=== PATIENT | male | born 1955 | race African-American/Black ===

== ENCOUNTER 2018-08-27 16:02 | Inpatient (IN) | payer MEDICAID ==
[~2018-08-27] VITALS: Ht 180.3 cm; Wt 107.5 kg
[~2018-08-27 16:02] MED LIST: ALBU6.7H INH; AMLO5TAB88 PO; ASA5EC PO; ASCO100T12 PO; CARV25TA47 PO; FURO-151 PO; GABA-531 PO; GLIM4TAB2 PO; ZINC220T PO
[2018-08-27] MEDS ORDERED: ONDANSETRON HCL 4MG/2ML INJ IV STA (18:27)
[2018-08-27] MEDS ORDERED: SODIUM CHLORIDE 0.9% 1,000 ML IV ONE (18:27)
[2018-08-27] MEDS ORDERED: MORPHINE SULFATE 4 MG/ML CPJ (NOT FOR IM USE) IV STA (18:27)
[2018-08-27] MEDS ORDERED: PIPERACILLIN/TAZ 3.375G PREMIX 50 ML IV ONE (18:30)
[2018-08-27] MEDS ORDERED: VANCOMYCIN 1 G PREMIX 200 ML IV ONE (18:30)
[2018-08-27 19:22] LABS: BASOPHILS % 0.3 % (0.0-2.0); EOSINOPHILS % 2.1 % (0.0-5.0); HEMATOCRIT. 29.3 % (42.0-52.0); HEMOGLOBIN. 9.8 g/dL (14.0-18.0); LYMPHOCYTES % 13.1 % (20.0-50.0); MEAN CORPUSCULAR HEMOGLOBIN 28.5 pg (28.0-32.0); MEAN CORPUSCULAR VOLUME 85.4 fL (80.0-94.0); MEAN PLATELET VOLUME 10.6 fl (7.4-10.4); MONOCYTES % 8.3 % (2.0-8.0); NEUTROPHILS % 76.2 % (40.0-76.0); PLATELET 132 x1000/uL (130-400); RED BLOOD CELL COUNT 3.43 mill/uL (4.7-6.1)
[2018-08-27 19:29] LABS: INR 1.1; PROTHROMBIN TIME 10.9 sec (9.1-11.1)
[2018-08-27 19:33] LABS: CHLORIDE 107 mEq/L (98-107)
[2018-08-27 20:31] LABS: CLARITY URINE CLEAR (CLEAR); COLOR URINE YELLOW (YELLOW); KETONES URINE NEGATIVE (NEGATIVE); LEUKOCYTE ESTERASE URINE NEGATIVE (NEGATIVE); NITRITE URINE NEGATIVE (NEGATIVE); OCCULT BLOOD URINE 1+ (NEGATIVE); PH URINE 6.5 (4.5-8.0); PROTEIN URINE 3+ (NEGATIVE); SPECIFIC GRAVITY URINE 1.017 (1.005-1.030)
[2018-08-27] MEDS ORDERED: CLONIDINE 0.2MG TABLET PO ONE (21:30)
[2018-08-27] MEDS ORDERED: DIPHENHYDRAMINE 50MG/ML VIAL IV PRN (23:15)
[2018-08-27] MEDS ORDERED: PIPERACILLIN/TAZ 3.375G PREMIX 50 ML IV SCH (23:15)
[2018-08-27] MEDS ORDERED: ACETAMINOPHEN 325MG TABLET PO PRN (23:15)
[2018-08-27] MEDS ORDERED: NITROGLYCERIN 0.4MG TABLET SL SL PRN (23:15)
[2018-08-27] MEDS ORDERED: DOCUSATE SODIUM 100MG CAPSULE PO PRN (23:15)
[2018-08-27] MEDS ORDERED: NA PHOS,M-B/NA PHOS,DI-BA ENEMA 118ML PR PRN (23:15)
[2018-08-27] MEDS ORDERED: ONDANSETRON HCL 4MG/2ML INJ IV PRN (23:15)
[2018-08-27] MEDS ORDERED: IPRATROPIUM/ALBUTEROL 0.5-3(2.5)MG/3ML NEB INH PRN (23:15)
[2018-08-27] MEDS ORDERED: TRAMADOL 50MG TABLET PO PRN (23:15)
[2018-08-27] MEDS ORDERED: DEXTROSE 50% WATER 50ML SYRINGE IV PRN (23:15)
[2018-08-27] MEDS ORDERED: GUAIFENESIN 200MG/10ML SUGAR FREE UDC PO PRN (23:15)
[2018-08-27] MEDS ORDERED: MAGNESIUM/ALUMINUM HYDROXIDE/SIMETHICONE 30ML UDC PO PRN (23:15)
[2018-08-27] MEDS ORDERED: ZOLPIDEM TARTRATE 5MG TABLET PO PRN (23:15)
[2018-08-28] VITALS (7 sets, daily range): BP systolic 149–171; BP diastolic 80–97
[2018-08-28] MEDS: AMLODIPINE 10MG TABLET PO SCH ×2 (05:17→09:00)
[2018-08-28] MEDS: BLOOD SUGAR DIAGNOSTIC STRIP TEST SCH ×4 (06:06→21:07)
[2018-08-28] MEDS: INSULIN LISPRO 100 UNITS/ML SUBCUT SCH ×4 (06:07→21:00)
[2018-08-28] MEDS: PIPERACILLIN/TAZ 3.375G PREMIX 50 ML IV SCH ×3 (06:19→21:22)
[2018-08-28] MEDS ORDERED: VANCOMYCIN 1500MG in DEXTROSE 5% WATER 250ML IV SCH (08:00)
[2018-08-28] MEDS: ENOXAPARIN 30MG/0.3ML SYR SUBCUT SCH ×2 (08:58→21:22)
[2018-08-28] MEDS: ZINC SULFATE 220 MG ( 50 ) CAPSULE PO SCH (08:59)
[2018-08-28] MEDS: FAMOTIDINE 20MG TABLET PO SCH ×2 (08:59→20:53)
[2018-08-28] MEDS: SPIRONOLACTONE 25MG TABLET PO SCH ×2 (08:59→20:54)
[2018-08-28] MEDS: FUROSEMIDE 40MG/4ML VIAL IVP SCH ×2 (08:59→20:53)
[2018-08-28] MEDS: METOPROLOL TARTRATE 25MG TABLET PO SCH ×2 (09:00→20:53)
[2018-08-28] MEDS: ASCORBIC ACID 500 MG TABLET PO SCH ×2 (10:58→20:53)
[2018-08-28] MEDS: LISINOPRIL 20MG TABLET PO SCH ×2 (10:59→20:53)
[2018-08-28] MEDS: VANCOMYCIN 1500MG in DEXTROSE 5% WATER 250ML IV SCH (23:50)
[2018-08-29] VITALS (8 sets, daily range): BP systolic 133–161; BP diastolic 75–91
[2018-08-29] MEDS: CLONIDINE 0.1MG TABLET PO PRN (00:04)
[2018-08-29] MEDS: PIPERACILLIN/TAZ 3.375G PREMIX 50 ML IV SCH ×3 (05:53→21:51)
[2018-08-29] MEDS: INSULIN LISPRO 100 UNITS/ML SUBCUT SCH ×4 (06:12→21:00)
[2018-08-29] MEDS: BLOOD SUGAR DIAGNOSTIC STRIP TEST SCH ×4 (06:12→21:51)
[2018-08-29 07:51] LABS: BASOPHILS % 0.4 % (0.0-2.0); EOSINOPHILS % 2.3 % (0.0-5.0); HEMATOCRIT. 28.2 % (42.0-52.0); HEMOGLOBIN. 9.4 g/dL (14.0-18.0); LYMPHOCYTES % 16.9 % (20.0-50.0); MEAN CORPUSCULAR HEMOGLOBIN 28.3 pg (28.0-32.0); MEAN PLATELET VOLUME 10.6 fl (7.4-10.4); MONOCYTES % 9.1 % (2.0-8.0); NEUTROPHILS % 71.3 % (40.0-76.0); PLATELET 135 x1000/uL (130-400); RED BLOOD CELL COUNT 3.32 mill/uL (4.7-6.1); RED CELL DISTRIBUTION WIDTH 15.6 % (11.6-14.6)
[2018-08-29 08:44] LABS: CHLORIDE 103 mEq/L (98-107)
[2018-08-29] MEDS: ASCORBIC ACID 500 MG TABLET PO SCH ×2 (09:21→21:49)
[2018-08-29] MEDS: LISINOPRIL 20MG TABLET PO SCH ×2 (09:21→21:49)
[2018-08-29] MEDS: SPIRONOLACTONE 25MG TABLET PO SCH ×2 (09:22→21:49)
[2018-08-29] MEDS: FAMOTIDINE 20MG TABLET PO SCH ×2 (09:22→21:50)
[2018-08-29] MEDS: ZINC SULFATE 220 MG ( 50 ) CAPSULE PO SCH (09:23)
[2018-08-29] MEDS: AMLODIPINE 10MG TABLET PO SCH (09:23)
[2018-08-29] MEDS: ENOXAPARIN 30MG/0.3ML SYR SUBCUT SCH ×2 (09:26→21:51)
[2018-08-29] MEDS: METOPROLOL TARTRATE 25MG TABLET PO SCH ×2 (09:28→21:50)
[2018-08-29] MEDS ORDERED: LIDOCAINE HCL 1% 20ML VIAL (Pyxis) INJ ONE ×2 (11:28→12:58)
[2018-08-29] MEDS: FUROSEMIDE 40MG/4ML VIAL IVP SCH ×2 (12:37→21:49)
[2018-08-29] MEDS ORDERED: SODIUM BICARBONATE 4% (2.4MEQ) 5ML VIAL IV ONE (12:57)
[2018-08-29] MEDS: VANCOMYCIN 1500MG in DEXTROSE 5% WATER 250ML IV SCH (17:48)
[2018-08-30] VITALS: BP 141/85
[2018-08-30 04:00] VITALS: BP 138/79
[2018-08-30] MEDS: PIPERACILLIN/TAZ 3.375G PREMIX 50 ML IV SCH ×3 (06:17→21:29)
[2018-08-30] MEDS: BLOOD SUGAR DIAGNOSTIC STRIP TEST SCH ×4 (06:17→20:53)
[2018-08-30] MEDS: INSULIN LISPRO 100 UNITS/ML SUBCUT SCH ×4 (06:17→20:53)
[2018-08-30 08:00] VITALS: BP 161/80
[2018-08-30] MEDS: FAMOTIDINE 20MG TABLET PO SCH ×2 (09:11→20:52)
[2018-08-30] MEDS: AMLODIPINE 10MG TABLET PO SCH (09:12)
[2018-08-30] MEDS: ZINC SULFATE 220 MG ( 50 ) CAPSULE PO SCH (09:13)
[2018-08-30] MEDS: SPIRONOLACTONE 25MG TABLET PO SCH ×2 (09:13→20:51)
[2018-08-30] MEDS: LISINOPRIL 20MG TABLET PO SCH ×2 (09:14→20:52)
[2018-08-30] MEDS: METOPROLOL TARTRATE 25MG TABLET PO SCH ×2 (09:14→20:52)
[2018-08-30] MEDS: ASCORBIC ACID 500 MG TABLET PO SCH ×2 (09:14→20:51)
[2018-08-30] MEDS: FUROSEMIDE 40MG/4ML VIAL IVP SCH ×2 (09:15→20:51)
[2018-08-30] MEDS: ENOXAPARIN 30MG/0.3ML SYR SUBCUT SCH ×2 (09:20→21:29)
[2018-08-30] MEDS ORDERED: HYDROMORPHONE HCL/PF 2MG/ML CPJ IV PRN (09:45)
[2018-08-30] MEDS: LEVOFLOXACIN 500MG PREMIX 100 ML IV SCH (11:47)
[2018-08-30 12:00] VITALS: BP 140/76
[2018-08-30] MEDS: KETOROLAC 15MG/ML VIAL IV PRN (12:03)
[2018-08-30] MEDS: VANCOMYCIN 1500MG in DEXTROSE 5% WATER 250ML IV SCH (13:08)
[2018-08-30 16:00] VITALS: BP 155/89
[2018-08-30 20:00] VITALS: BP 167/87
[2018-08-31] VITALS: BP 153/81
[2018-08-31 04:00] VITALS: BP 144/75
[2018-08-31] MEDS: VANCOMYCIN 1500MG in DEXTROSE 5% WATER 250ML IV SCH (04:31)
[2018-08-31] MEDS: INSULIN LISPRO 100 UNITS/ML SUBCUT SCH ×4 (07:38→21:00)
[2018-08-31] MEDS: PIPERACILLIN/TAZ 3.375G PREMIX 50 ML IV SCH ×3 (07:38→21:43)
[2018-08-31] MEDS: BLOOD SUGAR DIAGNOSTIC STRIP TEST SCH ×4 (07:38→21:00)
[2018-08-31] MEDS: ENOXAPARIN 30MG/0.3ML SYR SUBCUT SCH ×2 (09:19→21:42)
[2018-08-31] MEDS: METOPROLOL TARTRATE 25MG TABLET PO SCH ×2 (09:20→21:41)
[2018-08-31] MEDS: LISINOPRIL 20MG TABLET PO SCH ×2 (09:20→21:40)
[2018-08-31] MEDS: ZINC SULFATE 220 MG ( 50 ) CAPSULE PO SCH (09:21)
[2018-08-31] MEDS: ASCORBIC ACID 500 MG TABLET PO SCH ×2 (09:21→21:40)
[2018-08-31] MEDS: SPIRONOLACTONE 25MG TABLET PO SCH ×2 (09:21→21:41)
[2018-08-31] MEDS: AMLODIPINE 10MG TABLET PO SCH (09:21)
[2018-08-31] MEDS: FUROSEMIDE 40MG/4ML VIAL IVP SCH ×2 (09:22→21:40)
[2018-08-31] MEDS: FAMOTIDINE 20MG TABLET PO SCH ×2 (09:46→21:41)
[2018-08-31] MEDS: LEVOFLOXACIN 500MG PREMIX 100 ML IV SCH (11:29)
[2018-08-31 12:00] VITALS: BP 138/78
[2018-08-31 16:00] VITALS: BP 163/93
[2018-08-31 20:00] VITALS: BP 150/83
[2018-09-01] VITALS (7 sets, daily range): BP systolic 130–189; BP diastolic 46–91
[2018-09-01] MEDS: PIPERACILLIN/TAZ 3.375G PREMIX 50 ML IV SCH ×2 (05:39→13:32)
[2018-09-01] MEDS: KETOROLAC 15MG/ML VIAL IV PRN (05:49)
[2018-09-01] MEDS: VANCOMYCIN 1500MG in DEXTROSE 5% WATER 250ML IV SCH (06:17)
[2018-09-01] MEDS: BLOOD SUGAR DIAGNOSTIC STRIP TEST SCH ×2 (06:17→12:14)
[2018-09-01] MEDS: INSULIN LISPRO 100 UNITS/ML SUBCUT SCH ×2 (06:17→12:15)
[2018-09-01] MEDS: FUROSEMIDE 40MG/4ML VIAL IVP SCH (10:20)
[2018-09-01] MEDS: AMLODIPINE 10MG TABLET PO SCH (10:20)
[2018-09-01] MEDS: FAMOTIDINE 20MG TABLET PO SCH (10:20)
[2018-09-01] MEDS: SPIRONOLACTONE 25MG TABLET PO SCH (10:20)
[2018-09-01] MEDS: ENOXAPARIN 30MG/0.3ML SYR SUBCUT SCH (10:20)
[2018-09-01] MEDS: ZINC SULFATE 220 MG ( 50 ) CAPSULE PO SCH (10:20)
[2018-09-01] MEDS: METOPROLOL TARTRATE 25MG TABLET PO SCH (10:20)
[2018-09-01] MEDS: LEVOFLOXACIN 500MG PREMIX 100 ML IV SCH (11:23)
[2018-09-01] MEDS: LISINOPRIL 20MG TABLET PO SCH (11:59)
[2018-09-01] MEDS: ASCORBIC ACID 500 MG TABLET PO SCH (11:59)
[2018-09-01] MEDS: CLONIDINE 0.1MG TABLET PO PRN (12:21)
== END 2018-09-01 19:50 | disposition home health service (06) | DRG 344 ==
LOC: ER 16:19 → 8WST 22:47 → EDBEDREQ 22:56 → EDBEDREQTM 22:56 → ENRESERV 23:58 → CANRESERV 23:58 → EDBEDREQSVC 08-28 02:10 → EDBEDREQDT 08-28 02:10 → EDBEDREQ 08-28 02:10 → EDBEDREQTM 08-28 02:10 → ENRESERV 08-28 02:47
PROVIDERS: ADMIT Internal Medicine; ATTEND Internal Medicine
PROC: 02HV33Z Insertion of Infusion Device into Superior Vena Cava, Percutaneous Approach (ICD-10-PCS; 2018-08-29)
PROC: B5181ZA Fluoroscopy of Superior Vena Cava using Low Osmolar Contrast, Guidance (ICD-10-PCS; 2018-08-29)
PROC: B548ZZA Ultrasonography of Superior Vena Cava, Guidance (ICD-10-PCS; 2018-08-29)
PROC: 0JBQ0ZZ Excision of Right Foot Subcutaneous Tissue and Fascia, Open Approach (ICD-10-PCS; principal; 2018-08-31)
PROC: 0JBQ0ZZ Excision of Right Foot Subcutaneous Tissue and Fascia, Open Approach (ICD-10-PCS; 2018-08-31)
PROC: 0JBR0ZZ Excision of Left Foot Subcutaneous Tissue and Fascia, Open Approach (ICD-10-PCS; 2018-08-31)
DX: E11.621 Type 2 diabetes mellitus with foot ulcer (principal); M86.8X7 Other osteomyelitis, ankle and foot; E11.42 Type 2 diabetes mellitus with diabetic polyneuropathy; E44.0 Moderate protein-calorie malnutrition; E83.51 Hypocalcemia; I42.9 Cardiomyopathy, unspecified; I50.9 Heart failure, unspecified; I11.0 Hypertensive heart disease with heart failure; L97.529 Non-pressure chronic ulcer of other part of left foot with unspecified severity; L97.519 Non-pressure chronic ulcer of other part of right foot with unspecified severity; E11.69 Type 2 diabetes mellitus with other specified complication; D64.9 Anemia, unspecified; L89.90 Pressure ulcer of unspecified site, unspecified stage; Z68.33 Body mass index [BMI] 33.0-33.9, adult; Z79.899 Other long term (current) drug therapy; Z79.82 Long term (current) use of aspirin; Z89.432 Acquired absence of left foot
CPT/HCPCS: 36415; 36569; 71045; 73630; 73718; 76937; 77001; 80048; 80061; 80202; 82962; 83036; 83605; 84145; 84484; 87070; 87077; 87186; 93005; 93923; 93970; 96361; 96365; 96367; 96375; 99285; C1725; J1170; J1650; J1885; J1940; J1956; J2270; J2405; J2543; J3370; J3490; J7030; J7050; J7060

== ENCOUNTER 2018-12-31 14:18 | Inpatient (IN) | payer MEDICAID ==
[~2018-12-31] VITALS: Ht 180.3 cm; Wt 108.9 kg
[2018-12-31] MEDS ORDERED: CLONIDINE 0.2MG TABLET PO ONE (21:30)
[2018-12-31] MEDS ORDERED: FUROSEMIDE 40MG/4ML VIAL IV ONE (21:30)
[2018-12-31] MEDS ORDERED: ASPIRIN 81MG TABLET PO ONE (21:30)
[2018-12-31 22:16] LABS: BASOPHILS % 0.4 % (0.0-2.0); EOSINOPHILS % 1.4 % (0.0-5.0); HEMATOCRIT. 33.9 % (42.0-52.0); HEMOGLOBIN. 10.8 g/dL (14.0-18.0); LYMPHOCYTES % 7.2 % (20.0-50.0); MEAN CORPUSCULAR HEMOGLOBIN 26.3 pg (28.0-32.0); MEAN CORPUSCULAR VOLUME 82.8 fL (80.0-94.0); MEAN PLATELET VOLUME 10.4 fl (7.4-10.4); MONOCYTES % 14.7 % (2.0-8.0); NEUTROPHILS % 76.3 % (40.0-76.0); PLATELET 154 x1000/uL (130-400); RED CELL DISTRIBUTION WIDTH 16.7 % (11.6-14.6)
[2018-12-31 22:23] LABS: INR 1.1; PARTIAL THROMBOPLASTIN TIME 30.8 sec (23.4-31.0); PROTHROMBIN TIME 11.1 sec (9.1-11.1)
[2018-12-31 22:25] LABS: CHLORIDE 107 mEq/L (98-107)
[2018-12-31 22:32] LABS: ETHANOL BLOOD < 10 mg/dL
[2019-01-01 01:15] VITALS: BP 166/98
[2019-01-01] MEDS ORDERED: ATOR20TA65 PO (01:52)
[2019-01-01] MEDS ORDERED: BENA40TA9 PO (01:52)
[2019-01-01] MEDS ORDERED: METF-416 PO (01:52)
[2019-01-01] MEDS ORDERED: ASPI-1159 PO (01:55)
[2019-01-01] MEDS ORDERED: FURO20TA4 PO (01:55)
[2019-01-01 04:00] VITALS: BP 163/93
[2019-01-01] MEDS ORDERED: CLONIDINE 0.1MG TABLET PO PRN ×2 (04:45→06:00)
[2019-01-01] MEDS ORDERED: ONDANSETRON HCL 4MG/2ML INJ IV PRN (06:00)
[2019-01-01] MEDS ORDERED: HYDRALAZINE 20MG/ML VIAL IV PRN ×2 (06:00→11:00)
[2019-01-01] MEDS ORDERED: IPRATROPIUM/ALBUTEROL 0.5-3(2.5)MG/3ML NEB INH PRN (06:00)
[2019-01-01] MEDS ORDERED: ENOXAPARIN 40MG/0.4ML SYR SUBCUT SCH (06:00)
[2019-01-01] MEDS ORDERED: LORAZEPAM 2MG/ML CPJ IV PRN (06:00)
[2019-01-01] MEDS ORDERED: ACETAMINOPHEN 325MG TABLET PO PRN (06:00)
[2019-01-01] MEDS ORDERED: HYDROCODONE/ACETAMINOPHEN 10/325MG TABLET PO PRN (06:00)
[2019-01-01] MEDS ORDERED: DOCUSATE SODIUM 100MG CAPSULE PO PRN (06:00)
[2019-01-01] MEDS ORDERED: DEXTROSE 50% WATER 50ML SYRINGE IV PRN (06:00)
[2019-01-01] MEDS ORDERED: MAGNESIUM/ALUMINUM HYDROXIDE/SIMETHICONE 30ML UDC PO PRN (06:00)
[2019-01-01] MEDS: INSULIN LISPRO 100 UNITS/ML SUBCUT SCH ×4 (06:19→21:00)
[2019-01-01] MEDS: BLOOD SUGAR DIAGNOSTIC STRIP TEST SCH ×4 (06:24→21:00)
[2019-01-01] MEDS: SODIUM CHLORIDE 0.9% INJ 3ML FLUSH IVF SCH ×3 (06:33→22:15)
[2019-01-01 08:00] VITALS: BP 175/97
[2019-01-01] MEDS ORDERED: FUROSEMIDE 40MG/4ML VIAL IV SCH (09:00)
[2019-01-01] MEDS: ASPIRIN 81MG EC TABLET PO SCH (09:09)
[2019-01-01] MEDS: ENOXAPARIN 30MG/0.3ML SYR SUBCUT SCH ×2 (09:09→21:04)
[2019-01-01] MEDS: LOSARTAN POTASSIUM 25 MG TABLET PO SCH ×2 (11:50→21:04)
[2019-01-01] MEDS: GUAIFENESIN 200MG/10ML SUGAR FREE UDC PO PRN ×2 (11:50→17:55)
[2019-01-01] MEDS: AMLODIPINE 5MG TABLET PO SCH ×2 (11:50→21:04)
[2019-01-01 12:20] VITALS: BP 159/96
[2019-01-01 13:22] LABS: CREATINE KINASE MB FRACTION 1.7 ng/mL (0.5-3.6)
[2019-01-01 15:47] LABS: CREATINE KINASE MB FRACTION 1.5 ng/mL (0.5-3.6)
[2019-01-01 16:05] VITALS: BP 161/92
[2019-01-01 16:07] LABS: *AMPHETAMINES SCREEN URINE NEGATIVE (NEGATIVE); *BARBITURATES SCREEN URINE NEGATIVE (NEGATIVE); *BENZODIAZEPINES SCREEN URINE NEGATIVE (NEGATIVE); *COCAINE SCREEN URINE NEGATIVE (NEGATIVE); OPIATES URINE SCREEN NEGATIVE (NEGATIVE)
[2019-01-01 16:08] LABS: CANNABINOID URINE SCREEN NEGATIVE (NEGATIVE); PHENCYCLIDINE URINE SCREEN NEGATIVE (NEGATIVE)
[2019-01-01 16:09] LABS: METHADONE URINE SCREEN NEGATIVE (NEGATIVE)
[2019-01-01 16:11] LABS: CLARITY URINE CLEAR (CLEAR); COLOR URINE YELLOW (YELLOW); KETONES URINE NEGATIVE (NEGATIVE); LEUKOCYTE ESTERASE URINE NEGATIVE (NEGATIVE); NITRITE URINE NEGATIVE (NEGATIVE); OCCULT BLOOD URINE 1+ (NEGATIVE); PH URINE 5.5 (4.5-8.0); PROTEIN URINE 3+ (NEGATIVE); SPECIFIC GRAVITY URINE 1.014 (1.005-1.030)
[2019-01-01] MEDS: FUROSEMIDE 40MG/4ML VIAL IV SCH (17:56)
[2019-01-01 20:00] VITALS: BP 177/97
[2019-01-01] MEDS: GUAIFENESIN 600MG ER TABLET PO SCH (21:03)
[2019-01-02] VITALS: BP 169/101
[2019-01-02] MEDS: CLONIDINE 0.1MG TABLET PO PRN ×3 (01:26→12:10)
[2019-01-02 04:00] VITALS: BP 171/102
[2019-01-02] MEDS: HYDROMORPHONE HCL/PF 2MG/ML CPJ IV PRN ×3 (05:42→20:57)
[2019-01-02] MEDS: BLOOD SUGAR DIAGNOSTIC STRIP TEST SCH ×4 (05:49→20:52)
[2019-01-02] MEDS: SODIUM CHLORIDE 0.9% INJ 3ML FLUSH IVF SCH ×3 (05:50→21:02)
[2019-01-02] MEDS: INSULIN LISPRO 100 UNITS/ML SUBCUT SCH ×4 (06:17→20:53)
[2019-01-02 06:57] LABS: HEMATOCRIT. 29.6 % (42.0-52.0); HEMOGLOBIN. 9.6 g/dL (14.0-18.0); MEAN CORPUSCULAR HEMOGLOBIN 26.4 pg (28.0-32.0); MEAN CORPUSCULAR VOLUME 80.9 fL (80.0-94.0); MEAN PLATELET VOLUME 10.4 fl (7.4-10.4); PLATELET 139 x1000/uL (130-400); RED BLOOD CELL COUNT 3.66 mill/uL (4.7-6.1); RED CELL DISTRIBUTION WIDTH 16.5 % (11.6-14.6)
[2019-01-02] MEDS: FUROSEMIDE 40MG/4ML VIAL IV SCH (06:58)
[2019-01-02 07:06] LABS: CHLORIDE 105 mEq/L (98-107)
[2019-01-02 07:20] LABS: LDL CHOLESTEROL 41 mg/dL (5-100)
[2019-01-02 07:24] LABS: T4 FREE 1.31 ng/dL (0.76-1.46)
[2019-01-02 07:25] LABS: HDL CHOLESTEROL 43 mg/dL (40-59)
[2019-01-02 08:00] VITALS: BP 152/81
[2019-01-02] MEDS: LOSARTAN POTASSIUM 25 MG TABLET PO SCH (08:57)
[2019-01-02] MEDS: ASPIRIN 81MG EC TABLET PO SCH (08:57)
[2019-01-02] MEDS: GUAIFENESIN 600MG ER TABLET PO SCH ×2 (08:57→20:48)
[2019-01-02] MEDS: AMLODIPINE 5MG TABLET PO SCH ×2 (08:57→20:49)
[2019-01-02] MEDS: ENOXAPARIN 30MG/0.3ML SYR SUBCUT SCH ×2 (08:58→21:00)
[2019-01-02] MEDS ORDERED: POTASSIUM CHLORIDE 20MEQ TABLET SR PO SCH (09:00)
[2019-01-02 10:32] LABS: PLATELET ESTIMATE NORMAL
[2019-01-02 12:01] VITALS: BP 172/97
[2019-01-02] MEDS ORDERED: IPRATROPIUM/ALBUTEROL 0.5-3(2.5)MG/3ML NEB HHN PRN (12:30)
[2019-01-02] MEDS: HYDRALAZINE HCL 50MG TABLET PO SCH ×2 (14:00→21:03)
[2019-01-02] MEDS ORDERED: MAGNESIUM 1 G PREMIX 100 ML IV NR (14:00)
[2019-01-02] MEDS: GUAIFENESIN 200MG/10ML SUGAR FREE UDC PO PRN (15:25)
[2019-01-02 16:12] VITALS: BP 138/88
[2019-01-02] MEDS: POTASSIUM CHLORIDE 20MEQ TABLET SR PO SCH (16:56)
[2019-01-02] MEDS: FUROSEMIDE 100MG/10ML VIAL IV SCH (16:56)
[2019-01-02 20:00] VITALS: BP 190/99
[2019-01-02] MEDS: LOSARTAN POTASSIUM 50 MG TABLET PO SCH (20:49)
[2019-01-03] VITALS: BP 167/86
[2019-01-03] MEDS: HYDROMORPHONE HCL/PF 2MG/ML CPJ IV PRN (00:03)
[2019-01-03] MEDS: CLONIDINE 0.1MG TABLET PO PRN (00:12)
[2019-01-03 04:00] VITALS: BP 148/76
[2019-01-03] MEDS: HYDRALAZINE HCL 50MG TABLET PO SCH (06:20)
[2019-01-03] MEDS: FUROSEMIDE 100MG/10ML VIAL IV SCH (06:20)
[2019-01-03] MEDS: SODIUM CHLORIDE 0.9% INJ 3ML FLUSH IVF SCH (06:21)
[2019-01-03] MEDS: BLOOD SUGAR DIAGNOSTIC STRIP TEST SCH ×2 (06:21→12:25)
[2019-01-03] MEDS: INSULIN LISPRO 100 UNITS/ML SUBCUT SCH ×2 (06:32→12:15)
[2019-01-03] MEDS: GUAIFENESIN 200MG/10ML SUGAR FREE UDC PO PRN (06:43)
[2019-01-03 08:00] VITALS: BP 158/86
[2019-01-03] MEDS: ASPIRIN 81MG EC TABLET PO SCH (08:51)
[2019-01-03] MEDS: POTASSIUM CHLORIDE 20MEQ TABLET SR PO SCH (08:51)
[2019-01-03] MEDS: GUAIFENESIN 600MG ER TABLET PO SCH (08:52)
[2019-01-03] MEDS: LOSARTAN POTASSIUM 50 MG TABLET PO SCH (08:52)
[2019-01-03] MEDS: ENOXAPARIN 30MG/0.3ML SYR SUBCUT SCH (08:52)
[2019-01-03] MEDS: AMLODIPINE 5MG TABLET PO SCH (08:55)
[2019-01-03 11:07] VITALS: BP 148/68
[2019-01-03 12:00] VITALS: BP 152/76
== END 2019-01-03 14:09 | disposition home or self-care (01) | DRG 194 ==
LOC: ER 14:18 → 5WST 23:38 → EDBEDREQ 23:50 → EDBEDREQTM 23:50 → ENRESERV 01-01 00:22
PROVIDERS: ADMIT Internal Medicine; ATTEND Internal Medicine
DX: I11.0 Hypertensive heart disease with heart failure (principal); E11.649 Type 2 diabetes mellitus with hypoglycemia without coma; E46 Unspecified protein-calorie malnutrition; I27.20 Pulmonary hypertension, unspecified; I07.1 Rheumatic tricuspid insufficiency; E44.1 Mild protein-calorie malnutrition; E83.51 Hypocalcemia; N28.9 Disorder of kidney and ureter, unspecified; J98.11 Atelectasis; D64.9 Anemia, unspecified; E66.9 Obesity, unspecified; Z68.33 Body mass index [BMI] 33.0-33.9, adult; Z79.82 Long term (current) use of aspirin; Z79.84 Long term (current) use of oral hypoglycemic drugs; Z79.899 Other long term (current) drug therapy; Z82.49 Family history of ischemic heart disease and other diseases of the circulatory system; I50.23 Acute on chronic systolic (congestive) heart failure
CPT/HCPCS: 36415; 71045; 80061; 80305; 82550; 82553; 82962; 83605; 83735; 83880; 84439; 84443; 84484; 85379; 93005; 93306; 93970; 96374; 96375; 99285; J1170; J1650; J1940; J3475; J7050

== ENCOUNTER 2021-03-07 20:40 | Inpatient (IN) | payer MEDICAID ==
[~2021-03-07] VITALS: Ht 172.7 cm; Wt 96.6 kg
[2021-03-07] MEDS: HYDRALAZINE HCL 50MG TABLET PO NR (00:15)
[~2021-03-07 20:40] MED LIST changes: -ALBU6.7H INH; +ALBU6.7H11 INH; -ASA5EC PO; +ASPI-1497 PO; +ASPI-867 PO; +ATOR20TA65 PO; +BENA40TA9 PO; +FURO20TA4 PO; -GABA-531 PO; +GABA-532 PO; -GLIM4TAB2 PO; +GLIM4TAB36 PO; +METF-416 PO; -ZINC220T PO; +ZINC220T4 PO
[2021-03-07] MEDS ORDERED: CALAMINE LOTION 120ML TOP ONE (22:00)
[2021-03-07] MEDS ORDERED: DIPHENHYDRAMINE 50MG/ML VIAL IV ONE ×2 (22:00→22:45)
[2021-03-07 22:12] LABS: CHLORIDE 112 mEq/L (98-107)
[2021-03-07 22:15] LABS: BASOPHILS % 0.6 % (0.0-2.0); EOSINOPHILS % 2.8 % (0.0-5.0); HEMATOCRIT. 28.1 % (42.0-52.0); HEMOGLOBIN. 9.2 g/dL (14.0-18.0); LYMPHOCYTES % 11.8 % (20.0-50.0); MEAN CORPUSCULAR HEMOGLOBIN 26.8 pg (28.0-32.0); MEAN CORPUSCULAR VOLUME 82.2 fL (80.0-94.0); MEAN PLATELET VOLUME 10.3 fl (7.4-10.4); MONOCYTES % 8.7 % (2.0-8.0); NEUTROPHILS % 76.1 % (40.0-76.0); PLATELET 134 x1000/uL (130-400); RED BLOOD CELL COUNT 3.42 mill/uL (4.7-6.1)
[2021-03-07] MEDS: TRIAMCINOLONE ACETONIDE 0.025% CREAM 15GM TOP SCH ×2 (22:36→23:46)
[2021-03-07] MEDS ORDERED: LORAZEPAM 2MG/ML CPJ IV ONE (23:15)
[2021-03-07] MEDS ORDERED: FUROSEMIDE 40MG/4ML VIAL IVP ONE (23:45)
[2021-03-07] MEDS ORDERED: HYDRALAZINE 20MG/ML VIAL IV ONE (23:45)
[2021-03-08] MEDS ORDERED: LABETALOL 5MG/ML SYR 20 MG/4 ML SYRINGE IV ONE (00:15)
[2021-03-08] MEDS ORDERED: PIPERACILLIN/TAZOBACTAM 3.375GM/50ML PREMIX IV ONE (00:30)
[2021-03-08] MEDS ORDERED: NITROGLYCERIN 50MG PREMIX 250ML IV PRN (00:45)
[2021-03-08] MEDS ORDERED: PIPERACILLIN/TAZ 3.375G PREMIX 50 ML IV NR (01:00)
[2021-03-08] MEDS: CLONIDINE 0.2MG TABLET PO PRN (05:33)
[2021-03-08] MEDS: HYDRALAZINE HCL 50MG TABLET PO NR (06:22)
[2021-03-08] MEDS ORDERED: HYDRALAZINE HCL 100MG TABLET PO ONE (07:45)
[2021-03-08] MEDS ORDERED: ONDANSETRON HCL 4MG/2ML INJ IV PRN (07:45)
[2021-03-08] MEDS: AMLODIPINE 10MG TABLET PO SCH (08:59)
[2021-03-08 09:26] LABS: CLARITY URINE CLEAR (CLEAR); COLOR URINE YELLOW (YELLOW); KETONES URINE NEGATIVE (NEGATIVE); LEUKOCYTE ESTERASE URINE NEGATIVE (NEGATIVE); NITRITE URINE NEGATIVE (NEGATIVE); OCCULT BLOOD URINE TRACE (NEGATIVE); PROTEIN URINE 3+ (NEGATIVE); SPECIFIC GRAVITY URINE 1.011 (1.005-1.030); UROBILINOGEN URINE 0.2 E.U./dL (0.2-1.0)
[2021-03-08 09:39] LABS: *AMPHETAMINES SCREEN URINE NEGATIVE (NEGATIVE); *BARBITURATES SCREEN URINE NEGATIVE (NEGATIVE)
[2021-03-08 09:40] LABS: *BENZODIAZEPINES SCREEN URINE NEGATIVE (NEGATIVE); *COCAINE SCREEN URINE NEGATIVE (NEGATIVE); CANNABINOID URINE SCREEN NEGATIVE (NEGATIVE); METHADONE URINE SCREEN NEGATIVE (NEGATIVE); OPIATES URINE SCREEN NEGATIVE (NEGATIVE); PHENCYCLIDINE URINE SCREEN NEGATIVE (NEGATIVE)
[2021-03-08] MEDS: FUROSEMIDE 100MG/10ML VIAL IVP SCH ×2 (09:41→18:55)
[2021-03-08 11:15] VITALS: BP 150/86
[2021-03-08] MEDS: CLONIDINE 0.1MG TABLET PO SCH ×2 (14:28→21:26)
[2021-03-08] MEDS: HYDRALAZINE HCL 100MG TABLET PO SCH ×2 (14:29→21:24)
[2021-03-08 16:00] VITALS: BP 138/73
[2021-03-08 16:14] LABS: BG BASE EXCESS -7.1 mmol/L (-2.0-2.0); BG CARBOXYHEMOGLOBIN 0.5 % (0.5-1.5); BG DEOXYHEMOGLOBIN 4.3 % (0.0-5.0); BG FRACTION INSPIRED OXYGEN 21; BG HCO3 ACT 17.5 mmol/L (22.0-26.0); BG METHEMOGLOBIN 0.2 % (0.0-1.5); BG OXYGEN SATURATION 95.7 % (92.0-98.5); BG PCO2 31.6 mmHg (35.0-45.0); BG PO2 81.4 mmHg (75.0-100.0); BG SAMPLE SITE LEFT RADIAL; BG TOTAL HEMOGLOBIN 9.9 g/dL (12.0-18.0); BG VENT MODE ROOM AIR
[2021-03-08] MEDS ORDERED: ENOXAPARIN 30MG/0.3ML SYR SUBCUT SCH (17:30)
[2021-03-08 20:00] VITALS: BP 155/78
[2021-03-08] MEDS: CARVEDILOL 3.125 MG TABLET PO SCH (21:25)
[2021-03-08] MEDS: HYDROCODONE/ACETAMINOPHEN 10/325MG TABLET PO PRN (23:05)
[2021-03-09] VITALS: BP 139/80
[2021-03-09 04:00] VITALS: BP 150/82
[2021-03-09] MEDS: FUROSEMIDE 100MG/10ML VIAL IVP SCH ×2 (05:35→17:19)
[2021-03-09] MEDS: HYDRALAZINE HCL 100MG TABLET PO SCH ×3 (05:44→21:22)
[2021-03-09] MEDS: CLONIDINE 0.1MG TABLET PO SCH ×3 (05:50→21:23)
[2021-03-09 06:52] LABS: BASOPHILS % 0.5 % (0.0-2.0); EOSINOPHILS % 4.3 % (0.0-5.0); HEMATOCRIT. 28.8 % (42.0-52.0); HEMOGLOBIN. 9.4 g/dL (14.0-18.0); LYMPHOCYTES % 11.3 % (20.0-50.0); MEAN CORPUSCULAR VOLUME 82.5 fL (80.0-94.0); MEAN PLATELET VOLUME 9.9 fl (7.4-10.4); MONOCYTES % 8.8 % (2.0-8.0); NEUTROPHILS % 75.1 % (40.0-76.0); PLATELET 136 x1000/uL (130-400); RED BLOOD CELL COUNT 3.49 mill/uL (4.7-6.1); RED CELL DISTRIBUTION WIDTH 19.6 % (11.6-14.6)
[2021-03-09 06:53] LABS: PHOSPHORUS 5.6 mg/dL (2.5-4.9)
[2021-03-09 08:00] VITALS: BP 146/80
[2021-03-09] MEDS: CARVEDILOL 3.125 MG TABLET PO SCH ×2 (08:59→21:23)
[2021-03-09] MEDS: AMLODIPINE 10MG TABLET PO SCH (08:59)
[2021-03-09] MEDS: DIPHENHYDRAMINE 25MG CAPSULE PO PRN ×2 (09:00→12:36)
[2021-03-09] MEDS: TRIAMCINOLONE ACETONIDE 0.025% CREAM 15GM TOP SCH ×2 (09:00→21:24)
[2021-03-09] MEDS: SODIUM BICARBONATE 650 MG TABLET PO SCH ×2 (10:17→21:22)
[2021-03-09 12:00] VITALS: BP 131/67
[2021-03-09] MEDS ORDERED: DIPHENHYDRAMINE 50MG/ML VIAL IV NR (14:15)
[2021-03-09 16:00] VITALS: BP 145/73
[2021-03-09] MEDS ORDERED: IPRATROPIUM/ALBUTEROL 0.5-3(2.5)MG/3ML NEB HHN PRN (17:15)
[2021-03-09] MEDS: ENOXAPARIN 40MG/0.4ML SYR SUBCUT SCH (17:19)
[2021-03-09] MEDS: HYDROXYZINE 25MG TABLET PO PRN (17:19)
[2021-03-09 20:00] VITALS: BP 136/70
[2021-03-10] VITALS (7 sets, daily range): BP systolic 128–154; BP diastolic 69–83
[2021-03-10] MEDS: HYDROXYZINE 25MG TABLET PO PRN ×4 (00:39→22:42)
[2021-03-10] MEDS: FUROSEMIDE 100MG/10ML VIAL IVP SCH (05:23)
[2021-03-10] MEDS: CLONIDINE 0.1MG TABLET PO SCH ×3 (05:24→22:35)
[2021-03-10] MEDS: HYDRALAZINE HCL 100MG TABLET PO SCH ×3 (05:24→22:35)
[2021-03-10 07:09] LABS: BASOPHILS % 0.6 % (0.0-2.0); EOSINOPHILS % 3.7 % (0.0-5.0); HEMOGLOBIN. 8.6 g/dL (14.0-18.0); LYMPHOCYTES % 14.9 % (20.0-50.0); MEAN CORPUSCULAR HEMOGLOBIN 26.9 pg (28.0-32.0); MEAN CORPUSCULAR VOLUME 81.5 fL (80.0-94.0); MEAN PLATELET VOLUME 10.7 fl (7.4-10.4); MONOCYTES % 9.9 % (2.0-8.0); NEUTROPHILS % 70.9 % (40.0-76.0); PLATELET 139 x1000/uL (130-400); RED BLOOD CELL COUNT 3.19 mill/uL (4.7-6.1); RED CELL DISTRIBUTION WIDTH 19.6 % (11.6-14.6)
[2021-03-10 07:53] LABS: PHOSPHORUS 5.3 mg/dL (2.5-4.9)
[2021-03-10] MEDS: SODIUM BICARBONATE 650 MG TABLET PO SCH ×2 (08:22→20:45)
[2021-03-10] MEDS: AMLODIPINE 10MG TABLET PO SCH (08:22)
[2021-03-10] MEDS: CARVEDILOL 3.125 MG TABLET PO SCH ×2 (08:22→20:45)
[2021-03-10] MEDS: TRIAMCINOLONE ACETONIDE 0.025% CREAM 15GM TOP SCH ×2 (08:23→20:46)
[2021-03-10] MEDS: ENOXAPARIN 40MG/0.4ML SYR SUBCUT SCH (16:17)
[2021-03-10] MEDS: ACETAMINOPHEN 325MG TABLET PO PRN (22:36)
[2021-03-11] VITALS: BP 164/89
[2021-03-11] MEDS: DIPHENHYDRAMINE 25MG CAPSULE PO PRN ×2 (02:35→21:35)
[2021-03-11] MEDS: HYDROCODONE/ACETAMINOPHEN 10/325MG TABLET PO PRN ×2 (02:35→21:36)
[2021-03-11 04:00] VITALS: BP 151/74
[2021-03-11] MEDS: HYDROXYZINE 25MG TABLET PO PRN ×3 (04:31→16:23)
[2021-03-11] MEDS: HYDRALAZINE HCL 100MG TABLET PO SCH ×3 (05:36→21:35)
[2021-03-11] MEDS: CLONIDINE 0.2MG TABLET PO PRN (05:36)
[2021-03-11] MEDS: CLONIDINE 0.1MG TABLET PO SCH ×3 (06:00→21:35)
[2021-03-11 06:23] LABS: PHOSPHORUS 5.3 mg/dL (2.5-4.9)
[2021-03-11 08:00] VITALS: BP 143/76
[2021-03-11 08:22] LABS: BASOPHILS % 0.3 % (0.0-2.0); EOSINOPHILS % 2.8 % (0.0-5.0); HEMATOCRIT. 26.3 % (42.0-52.0); HEMOGLOBIN. 8.7 g/dL (14.0-18.0); MEAN CORPUSCULAR HEMOGLOBIN 26.9 pg (28.0-32.0); MEAN CORPUSCULAR VOLUME 81.8 fL (80.0-94.0); MEAN PLATELET VOLUME 10.6 fl (7.4-10.4); NEUTROPHILS % 77.9 % (40.0-76.0); PLATELET 134 x1000/uL (130-400); RED BLOOD CELL COUNT 3.22 mill/uL (4.7-6.1); RED CELL DISTRIBUTION WIDTH 19.2 % (11.6-14.6)
[2021-03-11] MEDS: TRIAMCINOLONE ACETONIDE 0.025% CREAM 15GM TOP SCH ×2 (08:30→21:00)
[2021-03-11] MEDS: AMLODIPINE 10MG TABLET PO SCH (08:30)
[2021-03-11] MEDS: SODIUM BICARBONATE 650 MG TABLET PO SCH ×2 (08:30→21:36)
[2021-03-11] MEDS: CARVEDILOL 3.125 MG TABLET PO SCH ×2 (08:30→21:35)
[2021-03-11 12:00] VITALS: BP 120/75
[2021-03-11] MEDS: ENOXAPARIN 40MG/0.4ML SYR SUBCUT SCH (15:02)
[2021-03-11 16:00] VITALS: BP 130/62
[2021-03-11 20:00] VITALS: BP 150/82
[2021-03-12] VITALS: BP 144/80
[2021-03-12 04:00] VITALS: BP 140/70
[2021-03-12] MEDS: HYDROXYZINE 25MG TABLET PO PRN ×3 (05:02→17:19)
[2021-03-12] MEDS: CLONIDINE 0.1MG TABLET PO SCH ×3 (05:02→21:36)
[2021-03-12] MEDS: HYDRALAZINE HCL 100MG TABLET PO SCH ×3 (05:03→21:36)
[2021-03-12 06:57] LABS: PHOSPHORUS 5.1 mg/dL (2.5-4.9)
[2021-03-12 07:12] LABS: BASOPHILS % 0.5 % (0.0-2.0); EOSINOPHILS % 5.7 % (0.0-5.0); HEMATOCRIT. 27.2 % (42.0-52.0); HEMOGLOBIN. 8.8 g/dL (14.0-18.0); MEAN CORPUSCULAR HEMOGLOBIN 26.1 pg (28.0-32.0); MONOCYTES % 11.2 % (2.0-8.0); NEUTROPHILS % 70.6 % (40.0-76.0); PLATELET 134 x1000/uL (130-400); RED BLOOD CELL COUNT 3.36 mill/uL (4.7-6.1); RED CELL DISTRIBUTION WIDTH 19.1 % (11.6-14.6)
[2021-03-12 08:00] VITALS: BP 152/100
[2021-03-12] MEDS: SODIUM BICARBONATE 650 MG TABLET PO SCH ×2 (08:18→21:36)
[2021-03-12] MEDS: PREDNISONE 20MG TABLET PO SCH (08:18)
[2021-03-12] MEDS: AMLODIPINE 10MG TABLET PO SCH (08:19)
[2021-03-12] MEDS: CARVEDILOL 3.125 MG TABLET PO SCH ×2 (08:19→21:00)
[2021-03-12] MEDS: TRIAMCINOLONE ACETONIDE 0.025% CREAM 15GM TOP SCH (08:19)
[2021-03-12 12:00] VITALS: BP 135/68
[2021-03-12] MEDS: ENOXAPARIN 40MG/0.4ML SYR SUBCUT SCH (15:13)
[2021-03-12 16:00] VITALS: BP 131/66
[2021-03-12 20:00] VITALS: BP 118/59
[2021-03-13] VITALS: BP 140/69
[2021-03-13] MEDS: HYDROXYZINE 25MG TABLET PO PRN ×2 (01:27→13:11)
[2021-03-13 04:00] VITALS: BP 138/72
[2021-03-13] MEDS: HYDRALAZINE HCL 100MG TABLET PO SCH ×3 (06:19→21:01)
[2021-03-13] MEDS: CLONIDINE 0.1MG TABLET PO SCH ×3 (06:28→21:06)
[2021-03-13] MEDS: HYDROCODONE/ACETAMINOPHEN 10/325MG TABLET PO PRN ×2 (06:28→21:02)
[2021-03-13 06:36] LABS: HEMATOCRIT. 27.1 % (42.0-52.0); MEAN CORPUSCULAR HEMOGLOBIN 26.5 pg (28.0-32.0); MEAN CORPUSCULAR VOLUME 80.3 fL (80.0-94.0); MEAN PLATELET VOLUME 10.5 fl (7.4-10.4); PLATELET 149 x1000/uL (130-400); RED BLOOD CELL COUNT 3.38 mill/uL (4.7-6.1); RED CELL DISTRIBUTION WIDTH 18.5 % (11.6-14.6)
[2021-03-13 07:38] LABS: PHOSPHORUS 5.4 mg/dL (2.5-4.9)
[2021-03-13 08:24] VITALS: BP 130/67
[2021-03-13] MEDS: AMLODIPINE 10MG TABLET PO SCH (08:56)
[2021-03-13] MEDS: SODIUM BICARBONATE 650 MG TABLET PO SCH ×2 (08:57→21:00)
[2021-03-13] MEDS: PREDNISONE 20MG TABLET PO SCH (08:57)
[2021-03-13] MEDS: CARVEDILOL 3.125 MG TABLET PO SCH ×2 (08:57→21:05)
[2021-03-13 11:58] VITALS: BP 125/64
[2021-03-13 13:45] LABS: PLATELET ESTIMATE NORMAL
[2021-03-13] MEDS: ENOXAPARIN 40MG/0.4ML SYR SUBCUT SCH (15:53)
[2021-03-13 15:57] VITALS: BP 126/67
[2021-03-13 20:00] VITALS: BP 143/74
[2021-03-14] VITALS: BP 136/73
[2021-03-14] MEDS: ACETAMINOPHEN 325MG TABLET PO PRN (03:47)
[2021-03-14] MEDS: HYDROXYZINE 25MG TABLET PO PRN (03:48)
[2021-03-14 04:00] VITALS: BP 161/79
[2021-03-14] MEDS: CLONIDINE 0.1MG TABLET PO SCH (05:24)
[2021-03-14] MEDS: HYDRALAZINE HCL 100MG TABLET PO SCH ×3 (05:25→23:28)
[2021-03-14 06:04] LABS: HEMATOCRIT. 27.6 % (42.0-52.0); HEMOGLOBIN. 9.2 g/dL (14.0-18.0); MEAN CORPUSCULAR HEMOGLOBIN 27.2 pg (28.0-32.0); MEAN CORPUSCULAR VOLUME 81.2 fL (80.0-94.0); MEAN PLATELET VOLUME 10.1 fl (7.4-10.4); PLATELET 151 x1000/uL (130-400); RED BLOOD CELL COUNT 3.39 mill/uL (4.7-6.1); RED CELL DISTRIBUTION WIDTH 18.7 % (11.6-14.6)
[2021-03-14 06:43] LABS: PHOSPHORUS 5.3 mg/dL (2.5-4.9)
[2021-03-14 08:00] VITALS: BP 155/81
[2021-03-14] MEDS: SODIUM BICARBONATE 650 MG TABLET PO SCH ×2 (08:36→23:27)
[2021-03-14] MEDS: PREDNISONE 20MG TABLET PO SCH (08:36)
[2021-03-14] MEDS: CARVEDILOL 3.125 MG TABLET PO SCH ×2 (08:37→23:28)
[2021-03-14] MEDS: AMLODIPINE 10MG TABLET PO SCH (08:38)
[2021-03-14 12:00] VITALS: BP 142/75
[2021-03-14] MEDS: HYDROCODONE/ACETAMINOPHEN 5/325MG TABLET PO PRN (13:04)
[2021-03-14] MEDS: CLONIDINE 0.2MG TABLET PO SCH ×2 (13:05→23:28)
[2021-03-14 14:44] LABS: PLATELET ESTIMATE NORMAL
[2021-03-14 15:33] LABS: INR 1.1; PARTIAL THROMBOPLASTIN TIME 30.8 sec (23.4-31.0); PROTHROMBIN TIME 11.4 sec (9.6-11.0)
[2021-03-14 16:00] VITALS: BP 131/67
[2021-03-14 20:00] VITALS: BP 145/69
[2021-03-15] VITALS (23 sets, daily range): BP systolic 138–179; BP diastolic 62–96
[2021-03-15] MEDS: HYDROXYZINE 25MG TABLET PO PRN (00:18)
[2021-03-15] MEDS: HYDRALAZINE HCL 100MG TABLET PO SCH ×3 (05:17→21:20)
[2021-03-15] MEDS: CLONIDINE 0.2MG TABLET PO SCH (05:17)
[2021-03-15] MEDS ORDERED: CEFAZOLIN 1000MG PREMIX 50 ML IV SCH (07:00)
[2021-03-15 07:06] LABS: HEMATOCRIT. 29.7 % (42.0-52.0); HEMOGLOBIN. 9.8 g/dL (14.0-18.0); MEAN CORPUSCULAR HEMOGLOBIN 27.3 pg (28.0-32.0); MEAN PLATELET VOLUME 9.9 fl (7.4-10.4); PLATELET 144 x1000/uL (130-400); RED BLOOD CELL COUNT 3.58 mill/uL (4.7-6.1); RED CELL DISTRIBUTION WIDTH 18.7 % (11.6-14.6)
[2021-03-15 07:10] LABS: PHOSPHORUS 5.4 mg/dL (2.5-4.9)
[2021-03-15] MEDS ORDERED: CEFAZOLIN 1000MG PREMIX 50 ML IV ONE (07:16)
[2021-03-15] MEDS ORDERED: FENTANYL CITRATE/PF 50MCG/ML 2ML VIAL ONE (07:17)
[2021-03-15] MEDS ORDERED: LIDOCAINE HCL 1% 20ML VIAL (Pyxis) INJ ONE (07:48)
[2021-03-15] MEDS ORDERED: FENTANYL CITRATE/PF 50MCG/ML 2ML VIAL IV ONE (08:45)
[2021-03-15] MEDS: CARVEDILOL 3.125 MG TABLET PO SCH ×2 (11:48→21:20)
[2021-03-15] MEDS: PREDNISONE 20MG TABLET PO SCH (11:48)
[2021-03-15] MEDS: SODIUM BICARBONATE 650 MG TABLET PO SCH ×2 (11:48→21:20)
[2021-03-15] MEDS: AMLODIPINE 10MG TABLET PO SCH (11:48)
[2021-03-15] MEDS: HYDROCODONE/ACETAMINOPHEN 5/325MG TABLET PO PRN (11:57)
[2021-03-15 12:25] LABS: HEPATITIS B SURFACE ANTIGEN NEGATIVE
[2021-03-15] MEDS: CLONIDINE 0.3MG TABLET PO SCH ×2 (14:09→21:20)
[2021-03-15 14:37] LABS: PLATELET ESTIMATE NORMAL
[2021-03-16 04:00] VITALS: BP 144/69
[2021-03-16] MEDS: DIPHENHYDRAMINE 25MG CAPSULE PO PRN (04:15)
[2021-03-16] MEDS: HYDROCODONE/ACETAMINOPHEN 5/325MG TABLET PO PRN (04:16)
[2021-03-16] MEDS: HYDROXYZINE 25MG TABLET PO PRN (04:23)
[2021-03-16] MEDS: HYDRALAZINE HCL 100MG TABLET PO SCH ×3 (05:56→21:02)
[2021-03-16] MEDS: CLONIDINE 0.3MG TABLET PO SCH ×3 (05:57→21:03)
[2021-03-16 09:10] LABS: BASOPHILS % 0.1 % (0.0-2.0); EOSINOPHILS % 1.6 % (0.0-5.0); HEMATOCRIT. 29.3 % (42.0-52.0); HEMOGLOBIN. 9.6 g/dL (14.0-18.0); LYMPHOCYTES % 8.4 % (20.0-50.0); MEAN CORPUSCULAR HEMOGLOBIN 25.9 pg (28.0-32.0); MEAN CORPUSCULAR VOLUME 78.7 fL (80.0-94.0); MONOCYTES % 10.1 % (2.0-8.0); NEUTROPHILS % 79.8 % (40.0-76.0); PLATELET 160 x1000/uL (130-400); RED BLOOD CELL COUNT 3.72 mill/uL (4.7-6.1); RED CELL DISTRIBUTION WIDTH 17.8 % (11.6-14.6)
[2021-03-16] MEDS: SODIUM BICARBONATE 650 MG TABLET PO SCH ×2 (09:22→21:03)
[2021-03-16] MEDS: PREDNISONE 20MG TABLET PO SCH (09:22)
[2021-03-16] MEDS: AMLODIPINE 10MG TABLET PO SCH (09:23)
[2021-03-16] MEDS: CARVEDILOL 3.125 MG TABLET PO SCH ×2 (09:23→21:02)
[2021-03-16 09:26] LABS: PHOSPHORUS 3.2 mg/dL (2.5-4.9)
[2021-03-16 21:00] VITALS: BP 143/71
[2021-03-17] VITALS: BP 160/77
[2021-03-17 05:00] VITALS: BP 167/86
[2021-03-17] MEDS: HYDRALAZINE HCL 100MG TABLET PO SCH ×3 (05:16→21:03)
[2021-03-17] MEDS: CLONIDINE 0.3MG TABLET PO SCH ×3 (05:16→22:00)
[2021-03-17 07:09] LABS: BASOPHILS % 0.1 % (0.0-2.0); EOSINOPHILS % 1.2 % (0.0-5.0); HEMATOCRIT. 29.9 % (42.0-52.0); HEMOGLOBIN. 9.9 g/dL (14.0-18.0); LYMPHOCYTES % 8.9 % (20.0-50.0); MEAN CORPUSCULAR HEMOGLOBIN 26.4 pg (28.0-32.0); MEAN CORPUSCULAR VOLUME 79.9 fL (80.0-94.0); MEAN PLATELET VOLUME 10.2 fl (7.4-10.4); MONOCYTES % 9.5 % (2.0-8.0); NEUTROPHILS % 80.3 % (40.0-76.0); PLATELET 146 x1000/uL (130-400); RED BLOOD CELL COUNT 3.74 mill/uL (4.7-6.1); RED CELL DISTRIBUTION WIDTH 17.9 % (11.6-14.6)
[2021-03-17 07:44] LABS: PHOSPHORUS 4.2 mg/dL (2.5-4.9)
[2021-03-17 08:00] VITALS: BP 122/80
[2021-03-17] MEDS: AMLODIPINE 10MG TABLET PO SCH (09:58)
[2021-03-17] MEDS: PREDNISONE 20MG TABLET PO SCH (09:58)
[2021-03-17] MEDS: CARVEDILOL 3.125 MG TABLET PO SCH ×2 (09:58→21:03)
[2021-03-17] MEDS: SODIUM BICARBONATE 650 MG TABLET PO SCH ×2 (09:58→21:02)
[2021-03-17 12:58] VITALS: BP 141/70
[2021-03-17 16:00] VITALS: BP 125/56
[2021-03-17] MEDS: DOCUSATE SODIUM 100MG CAPSULE PO SCH (17:32)
[2021-03-17 20:00] VITALS: BP 135/70
[2021-03-17] MEDS: CLONIDINE 0.2MG TABLET PO PRN (22:15)
[2021-03-18] VITALS: BP 133/65
[2021-03-18 04:00] VITALS: BP 155/70
[2021-03-18] MEDS: HYDRALAZINE HCL 100MG TABLET PO SCH ×3 (06:18→23:02)
[2021-03-18] MEDS: CLONIDINE 0.3MG TABLET PO SCH ×3 (06:18→23:02)
[2021-03-18 06:40] LABS: BASOPHILS % 0.2 % (0.0-2.0); EOSINOPHILS % 1.3 % (0.0-5.0); HEMATOCRIT. 30.4 % (42.0-52.0); MEAN CORPUSCULAR HEMOGLOBIN 26.1 pg (28.0-32.0); MEAN CORPUSCULAR VOLUME 79.6 fL (80.0-94.0); MEAN PLATELET VOLUME 9.9 fl (7.4-10.4); MONOCYTES % 9.4 % (2.0-8.0); NEUTROPHILS % 81.1 % (40.0-76.0); PLATELET 142 x1000/uL (130-400); RED BLOOD CELL COUNT 3.82 mill/uL (4.7-6.1)
[2021-03-18 06:58] LABS: PHOSPHORUS 4.5 mg/dL (2.5-4.9)
[2021-03-18 08:00] VITALS: BP 146/88
[2021-03-18] MEDS: CARVEDILOL 3.125 MG TABLET PO SCH (08:13)
[2021-03-18] MEDS: SODIUM BICARBONATE 650 MG TABLET PO SCH (08:13)
[2021-03-18] MEDS: AMLODIPINE 10MG TABLET PO SCH (08:13)
[2021-03-18] MEDS: PREDNISONE 20MG TABLET PO SCH (08:13)
[2021-03-18] MEDS: DOCUSATE SODIUM 100MG CAPSULE PO SCH ×2 (08:13→16:00)
[2021-03-18] MEDS: NIFEDIPINE XL 90MG TAB PO SCH (15:30)
[2021-03-18 16:00] VITALS: BP 169/83
[2021-03-18 20:00] VITALS: BP 147/72
[2021-03-18] MEDS: CARVEDILOL 12.5MG TABLET PO SCH (22:19)
[2021-03-18 23:00] VITALS: BP 179/78
[2021-03-19] VITALS (7 sets, daily range): BP systolic 119–186; BP diastolic 58–90
[2021-03-19] MEDS: HYDROCODONE/ACETAMINOPHEN 5/325MG TABLET PO PRN (05:12)
[2021-03-19] MEDS: CLONIDINE 0.2MG TABLET PO PRN (05:12)
[2021-03-19] MEDS: CLONIDINE 0.3MG TABLET PO SCH ×3 (06:32→21:16)
[2021-03-19] MEDS: HYDRALAZINE HCL 100MG TABLET PO SCH ×2 (06:32→13:43)
[2021-03-19] MEDS: DOCUSATE SODIUM 100MG CAPSULE PO SCH ×2 (08:49→17:54)
[2021-03-19] MEDS: CARVEDILOL 12.5MG TABLET PO SCH ×2 (08:49→20:52)
[2021-03-19] MEDS: NIFEDIPINE XL 90MG TAB PO SCH (08:49)
[2021-03-19] MEDS ORDERED: PREDNISONE 10MG TABLET PO SCH (09:00)
[2021-03-19] MEDS ORDERED: LACTULOSE 20G/30ML UDC PO NR (19:45)
[2021-03-19] MEDS ORDERED: MINOXIDIL 2.5MG TABLET PO SCH (21:00)
[2021-03-20 05:00] VITALS: BP 150/71
[2021-03-20] MEDS: CLONIDINE 0.3MG TABLET PO SCH ×2 (05:19→15:30)
[2021-03-20 08:00] VITALS: BP 167/79
[2021-03-20] MEDS ORDERED: PREDNISONE 10MG TABLET PO SCH (09:00)
[2021-03-20] MEDS ORDERED: NIFEDIPINE XL 60MG TAB PO SCH (09:00)
[2021-03-20] MEDS: DOCUSATE SODIUM 100MG CAPSULE PO SCH ×2 (10:14→17:00)
[2021-03-20] MEDS: CARVEDILOL 12.5MG TABLET PO SCH (10:20)
[2021-03-20 12:00] VITALS: BP 161/79
[2021-03-20] MEDS ORDERED: NIFE-32 PO (13:59)
[2021-03-20] MEDS ORDERED: CARV25TA47 MT (13:59)
[2021-03-20] MEDS ORDERED: CLON0.3T PO (13:59)
[2021-03-20] MEDS ORDERED: HYDR100T26 PO (13:59)
[2021-03-20] MEDS ORDERED: HYDRALAZINE HCL 100MG TABLET PO SCH (14:00)
[2021-03-20 16:00] VITALS: BP 160/80
[2021-03-20 16:18] LABS: BASOPHILS % 0.5 % (0.0-2.0); EOSINOPHILS % 1.8 % (0.0-5.0); HEMATOCRIT. 28.4 % (42.0-52.0); HEMOGLOBIN. 9.4 g/dL (14.0-18.0); LYMPHOCYTES % 7.7 % (20.0-50.0); MEAN CORPUSCULAR HEMOGLOBIN 26.3 pg (28.0-32.0); MEAN CORPUSCULAR VOLUME 79.5 fL (80.0-94.0); MEAN PLATELET VOLUME 10.1 fl (7.4-10.4); MONOCYTES % 8.5 % (2.0-8.0); NEUTROPHILS % 81.5 % (40.0-76.0); PLATELET 129 x1000/uL (130-400); RED BLOOD CELL COUNT 3.57 mill/uL (4.7-6.1); RED CELL DISTRIBUTION WIDTH 17.5 % (11.6-14.6)
[2021-03-20 16:36] LABS: PHOSPHORUS 4.3 mg/dL (2.5-4.9)
[2021-03-20 20:01] VITALS: BP 160/80
[2021-03-20] MEDS ORDERED: CARVEDILOL 12.5MG TABLET PO SCH (21:00)
== END 2021-03-20 21:31 | disposition home or self-care (01) | DRG 194 ==
LOC: ER 20:40 → EDBEDREQ 03-08 00:14 → EDBEDREQDT 03-08 00:14 → EDBEDREQTM 03-08 00:14 → 7WST 03-08 00:30 → EDBEDREQTM 03-08 00:33 → EDBEDREQSVC 03-08 00:33 → EDBEDREQTM 03-08 05:14 → EDBEDREQSVC 03-08 05:14 → CANRESERV 03-08 07:23 → ENRESERV 03-08 07:23 → 8WST 03-08 22:26
PROVIDERS: ADMIT Internal Medicine; ATTEND Internal Medicine
PROC: 0JH63XZ Insertion of Tunneled Vascular Access Device into Chest Subcutaneous Tissue and Fascia, Percutaneous Approach (ICD-10-PCS; principal; 2021-03-15)
PROC: 02HV33Z Insertion of Infusion Device into Superior Vena Cava, Percutaneous Approach (ICD-10-PCS; 2021-03-15)
PROC: B518ZZA Fluoroscopy of Superior Vena Cava, Guidance (ICD-10-PCS; 2021-03-15)
PROC: B548ZZA Ultrasonography of Superior Vena Cava, Guidance (ICD-10-PCS; 2021-03-15)
PROC: 5A1D70Z Performance of Urinary Filtration, Intermittent, Less than 6 Hours Per Day (ICD-10-PCS; 2021-03-15)
PROC: 5A1D70Z Performance of Urinary Filtration, Intermittent, Less than 6 Hours Per Day (ICD-10-PCS; 2021-03-16)
PROC: 5A1D70Z Performance of Urinary Filtration, Intermittent, Less than 6 Hours Per Day (ICD-10-PCS; 2021-03-18)
DX: I13.0 Hypertensive heart and chronic kidney disease with heart failure and stage 1 through stage 4 chronic kidney disease, or unspecified chronic kidney disease (principal); N17.0 Acute kidney failure with tubular necrosis; J96.01 Acute respiratory failure with hypoxia; I50.23 Acute on chronic systolic (congestive) heart failure; I42.8 Other cardiomyopathies; N18.30 Chronic kidney disease, stage 3 unspecified; E87.8 Other disorders of electrolyte and fluid balance, not elsewhere classified; D64.9 Anemia, unspecified; I16.1 Hypertensive emergency; E11.51 Type 2 diabetes mellitus with diabetic peripheral angiopathy without gangrene; I27.29 Other secondary pulmonary hypertension; E87.2 Acidosis; F17.200 Nicotine dependence, unspecified, uncomplicated; E78.5 Hyperlipidemia, unspecified; Z20.822 Contact with and (suspected) exposure to COVID-19; E11.22 Type 2 diabetes mellitus with diabetic chronic kidney disease; N17.9 Acute kidney failure, unspecified; L29.9 Pruritus, unspecified; B19.20 Unspecified viral hepatitis C without hepatic coma; Z79.84 Long term (current) use of oral hypoglycemic drugs; Z79.82 Long term (current) use of aspirin; Z79.899 Other long term (current) drug therapy; Z82.49 Family history of ischemic heart disease and other diseases of the circulatory system; Z83.3 Family history of diabetes mellitus; Z99.2 Dependence on renal dialysis
CPT/HCPCS: 36415; 36600; 71045; 71046; 71250; 76770; 76937; 77001; 80048; 80053; 80061; 80305; 81003; 82375; 82550; 82805; 83735; 83880; 84100; 84484; 85025; 86705; 86706; 86803; 87340; 93005; 93306; 99152; 99153; 99291; C1750; C1769; J0360; J0690; J1200; J1642; J1650; J1940; J2060; J2543; J3010; J3490; J7512; Q0163; U0003; A4315; G0500

== ENCOUNTER 2024-08-18 00:44 | Inpatient (IN) | payer MEDICARE, MEDICAID ==
[~2024-08-18] VITALS: Ht 172.7 cm; Wt 75.9 kg
[2024-08-18] VITALS (9 sets, daily range): BP systolic 91–186; BP diastolic 57–114; PULSE 52–94; RESP 16–19; TEMP 36.78072–36.89184; O2SAT 98
[~2024-08-18 00:44] MED LIST changes: -ALBU6.7H11 INH; +ALBU6.7H15 INH; -AMLO5TAB88 PO; -ASPI-867 PO; -BENA40TA9 PO; -CARV25TA47 PO; +CIPR2.5D20 RIGHTEYE; +COR12 PO; +FOLI0.8T53 MT; -FURO-151 PO; -FURO20TA4 PO; -GLIM4TAB36 PO; +HYDR-459 MT; +LOSA100T33 PO; -METF-416 PO; +NIFE-32 PO; +SEVE800T8 PO
[2024-08-18 01:46] LABS: BASOPHILS % 0.6 % (0.0-2.0); HEMATOCRIT. 36.3 % (42.0-52.0); HEMOGLOBIN. 11.8 g/dL (14.0-18.0); LYMPHOCYTES % 13.3 % (20.0-50.0); MEAN CORPUSCULAR HEMOGLOBIN 29.6 pg (28.0-32.0); MEAN CORPUSCULAR HGB CONC 32.6 g/dL (31.0-37.0); MEAN CORPUSCULAR VOLUME 90.7 fL (80.0-94.0); MEAN PLATELET VOLUME 10.6 fl (7.4-10.4); MONOCYTES % 8.8 % (2.0-8.0); NEUTROPHILS % 73.3 % (40.0-76.0); PLATELET 111 x1000/uL (130-400); POTASSIUM 4.9 mEq/L (3.5-5.1); RED CELL DISTRIBUTION WIDTH 16.6 % (11.6-14.6); WHITE BLOOD COUNT 4.2 x1000/uL (4.5-11.0)
[2024-08-18 01:47] LABS: CALCIUM 9.9 mg/dL (8.7-10.4)
[2024-08-18 02:32] LABS: CREATININE 11.7 mg/dL (0.6-1.3)
[2024-08-18] MEDS: ONDANSETRON HCL 4MG/2ML INJ IV STA (02:55)
[2024-08-18] MEDS: PIPERACILLIN/TAZO 3.375G/50ML 50 ML IV ONE (02:56)
[2024-08-18] MEDS: MORPHINE SULFATE 4 MG/ML INJ (FOR IV/IM USE) IV STA (02:56)
[2024-08-18] MEDS: LABETALOL 5MG/ML 4ML INJ IV ONE (02:56)
[2024-08-18] MEDS: VANCOMYCIN 1G PREMIX 200 ML IV ONE (03:15)
[2024-08-18] MEDS ORDERED: NALOXONE HCL 0.4MG/ML VIAL IV PRN (07:00)
[2024-08-18] MEDS: CLONIDINE 0.2MG TABLET PO NR (07:23)
[2024-08-18] MEDS: MORPHINE SULFATE 2 MG/ML INJ (NOT FOR IM USE) IV PRN (07:24)
[2024-08-18] MEDS: CARVEDILOL 12.5MG TABLET PO SCH (10:27)
[2024-08-18] MEDS: NIFEDIPINE XL 60MG TAB PO SCH (10:28)
[2024-08-18] MEDS: FOLIC ACID/VITAMIN B COMP W-C TABLET PO SCH (10:37)
[2024-08-18] MEDS: FUROSEMIDE 40MG TABLET PO SCH (10:37)
[2024-08-18] MEDS: SEVELAMER CARBONATE 800 MG TABLET PO SCH (12:15)
[2024-08-18 17:31] LABS: TROPONIN I HIGH SENSITIVITY 44 ng/L (3.0-53)
[2024-08-18] MEDS: HYDROCODONE/ACETAMINOPHEN 10/325MG TABLET PO PRN (17:43)
[2024-08-18] MEDS ORDERED: ATORVASTATIN CALCIUM 20MG TABLET PO SCH (21:00)
[2024-08-18] MEDS ORDERED: NIFEDIPINE XL 60MG TAB PO SCH (21:00)
[2024-08-18] MEDS ORDERED: CARVEDILOL 12.5MG TABLET PO SCH (21:00)
[2024-08-18] MEDS: ATORVASTATIN CALCIUM 20MG TABLET PO SCH (21:31)
[2024-08-18] MEDS: HEPARIN 5000 UNITS/ML VIAL SUBCUT SCH (21:31)
[2024-08-18] MEDS: ASPIRIN 81MG EC TABLET PO SCH (21:31)
[2024-08-19] VITALS (7 sets, daily range): BP systolic 130–155; BP diastolic 55–80; PULSE 59–88; RESP 9–19; TEMP 36.3918–36.9474; O2SAT 96–100
[2024-08-19 04:51] LABS: *AMPHETAMINES SCREEN URINE NEGATIVE (NEGATIVE); *BARBITURATES SCREEN URINE NEGATIVE (NEGATIVE); *BENZODIAZEPINES SCREEN URINE NEGATIVE (NEGATIVE); *COCAINE SCREEN URINE NEGATIVE (NEGATIVE)
[2024-08-19 04:52] LABS: CANNABINOID URINE SCREEN NEGATIVE (NEGATIVE); ECSTASY MDMA SCREEN URINE NEGATIVE (NEGATIVE); METHADONE URINE SCREEN NEGATIVE (NEGATIVE); OPIATES URINE SCREEN PRESUMPTIVE POSITIVE (NEGATIVE); PHENCYCLIDINE URINE SCREEN NEGATIVE (NEGATIVE)
[2024-08-19 07:08] LABS: CALCIUM 9.2 mg/dL (8.7-10.4); POTASSIUM 4.9 mEq/L (3.5-5.1)
[2024-08-19 07:15] LABS: BASOPHILS % 0.7 % (0.0-2.0); EOSINOPHILS % 5.8 % (0.0-5.0); HEMATOCRIT. 33.2 % (42.0-52.0); LYMPHOCYTES % 12.8 % (20.0-50.0); MEAN CORPUSCULAR HEMOGLOBIN 30.1 pg (28.0-32.0); MEAN CORPUSCULAR HGB CONC 33.2 g/dL (31.0-37.0); MEAN CORPUSCULAR VOLUME 90.7 fL (80.0-94.0); MEAN PLATELET VOLUME 10.6 fl (7.4-10.4); MONOCYTES % 9.8 % (2.0-8.0); NEUTROPHILS % 70.9 % (40.0-76.0); PLATELET 99 x1000/uL (130-400); RED BLOOD CELL COUNT 3.66 mill/uL (4.7-6.1); RED CELL DISTRIBUTION WIDTH 16.2 % (11.6-14.6); WHITE BLOOD COUNT 3.7 x1000/uL (4.5-11.0)
[2024-08-19 07:16] LABS: PHOSPHORUS 5.6 mg/dL (2.5-4.9)
[2024-08-19 07:17] LABS: CREATININE 9.1 mg/dL (0.6-1.3)
[2024-08-19] MEDS ORDERED: FENTANYL CITRATE/PF 50MCG/ML 2ML VIAL ONE (08:24)
[2024-08-19] MEDS ORDERED: HEPARIN 1000 UNITS/ML 10ML ONE (08:24)
[2024-08-19] MEDS ORDERED: DIPHENHYDRAMINE 50MG/ML VIAL ONE (08:24)
[2024-08-19] MEDS ORDERED: MIDAZOLAM HCL 2 MG/2 ML VIAL ONE (08:24)
[2024-08-19] MEDS ORDERED: VERAPAMIL HCL 2.5 MG/1 ML 2ML VIAL IV ONE (08:24)
[2024-08-19] MEDS ORDERED: IODIXANOL 320MG/ML 100 ML BOTTLE IV ONE (08:25)
[2024-08-19] MEDS ORDERED: LIDOCAINE HCL 1% 10 MG/ML 10ML VIAL ONE (08:25)
[2024-08-19] MEDS: ASPIRIN 81MG TABLET PO SCH (09:00)
[2024-08-19] MEDS: LOSARTAN 100 MG TABLET PO SCH (09:00)
[2024-08-19] MEDS ORDERED: ATROPINE SULFATE 1MG/10ML SYR IV PRN (09:30)
[2024-08-19] MEDS ORDERED: ACETAMINOPHEN 325MG TABLET PO PRN (09:30)
[2024-08-19 11:42] LABS: HEPATITIS B SURFACE ANTIGEN NEGATIVE (Negative)
[2024-08-19 12:02] LABS: HEPATITIS A AB IGM NEGATIVE (Negative)
[2024-08-19 12:03] LABS: HEPATITIS B CORE AB IGM NEGATIVE (Negative); HEPATITIS C AB REACTIVE (Pos) (Negative)
[2024-08-20] VITALS (14 sets, daily range): BP systolic 102–159; BP diastolic 58–98; PULSE 63–71; RESP 12–18; TEMP 36.50292–36.83628; O2SAT 95–100
[2024-08-20 07:56] LABS: CALCIUM 9.4 mg/dL (8.7-10.4); POTASSIUM 5.1 mEq/L (3.5-5.1)
[2024-08-20 08:08] LABS: BASOPHILS % 0.6 % (0.0-2.0); EOSINOPHILS % 6.6 % (0.0-5.0); HEMATOCRIT. 34.4 % (42.0-52.0); LYMPHOCYTES % 17.4 % (20.0-50.0); MEAN CORPUSCULAR HEMOGLOBIN 29.2 pg (28.0-32.0); MEAN CORPUSCULAR HGB CONC 31.9 g/dL (31.0-37.0); MEAN CORPUSCULAR VOLUME 91.7 fL (80.0-94.0); MONOCYTES % 9.4 % (2.0-8.0); PLATELET 101 x1000/uL (130-400); RED BLOOD CELL COUNT 3.75 mill/uL (4.7-6.1); RED CELL DISTRIBUTION WIDTH 16.4 % (11.6-14.6); WHITE BLOOD COUNT 3.2 x1000/uL (4.5-11.0)
[2024-08-20 08:12] LABS: CREATININE 10.3 mg/dL (0.6-1.3)
[2024-08-20] MEDS: BISACODYL 5MG TABLET PO SCH (23:15)
[2024-08-21] VITALS: BP 138/72; PULSE 71; RESP 14; TEMP 36.61404; O2SAT 97
[2024-08-21 04:00] VITALS: BP 140/68; PULSE 66; RESP 16; TEMP 36.9474; O2SAT 98
[2024-08-21 07:46] VITALS: BP 143/66; PULSE 68; RESP 13; TEMP 36.83628; O2SAT 98
[2024-08-21 12:00] VITALS: BP 138/76; PULSE 65; RESP 10; TEMP 36.83628; O2SAT 98
[2024-08-21] MEDS: ERYTHROMYCIN BASE 0.5% OPHTH OINT 3.5GM RIGHTEYE SCH (15:30)
[2024-08-21 16:00] VITALS: BP 143/74; PULSE 66; RESP 15; TEMP 36.78072; O2SAT 98
[2024-08-21] MEDS: CIPROFLOXACIN 0.3% OPHTH SOLN 2.5ML BOTHEYE SCH (17:46)
[2024-08-21 20:00] VITALS: BP 136/91; PULSE 72; RESP 14; TEMP 36.61404; O2SAT 100
[2024-08-21] MEDS: GABAPENTIN 100MG CAPSULE PO SCH (22:50)
[2024-08-22] VITALS (15 sets, daily range): BP systolic 106–145; BP diastolic 54–91; PULSE 62–75; RESP 12–23; TEMP 36.44736–37.00296; O2SAT 95–99
[2024-08-22] MEDS: LACTULOSE 20G/30ML UDC PO SCH (01:23)
[2024-08-22 06:56] LABS: POTASSIUM 5.6 mEq/L (3.5-5.1)
[2024-08-22 06:57] LABS: CALCIUM 9.7 mg/dL (8.7-10.4)
[2024-08-22 07:03] LABS: BASOPHILS % 0.6 % (0.0-2.0); HEMATOCRIT. 34.7 % (42.0-52.0); HEMOGLOBIN. 11.3 g/dL (14.0-18.0); LYMPHOCYTES % 16.1 % (20.0-50.0); MEAN CORPUSCULAR HEMOGLOBIN 29.2 pg (28.0-32.0); MEAN CORPUSCULAR HGB CONC 32.5 g/dL (31.0-37.0); MEAN CORPUSCULAR VOLUME 89.8 fL (80.0-94.0); MEAN PLATELET VOLUME 10.6 fl (7.4-10.4); MONOCYTES % 8.3 % (2.0-8.0); PLATELET 99 x1000/uL (130-400); RED BLOOD CELL COUNT 3.86 mill/uL (4.7-6.1); WHITE BLOOD COUNT 3.2 x1000/uL (4.5-11.0)
[2024-08-22 07:04] LABS: PHOSPHORUS 5.3 mg/dL (2.5-4.9)
[2024-08-22 07:10] LABS: CREATININE 8.7 mg/dL (0.6-1.3)
[2024-08-22] MEDS: SORBITOL 70% SOLN 30ML PO NR (10:00)
[2024-08-22] MEDS ORDERED: LACT10SO7 MT (10:42)
[2024-08-22] MEDS ORDERED: HYDR-4009 PO (10:42)
[2024-08-22] MEDS ORDERED: CIPR2.5D20 BOTHEYE (10:42)
[2024-08-22] MEDS: ONDANSETRON HCL 4MG/2ML INJ IV PRN (15:51)
[2024-08-22] MEDS ORDERED: LORAZEPAM 2MG/ML INJ IV PRN (17:00)
[2024-08-22] MEDS: DEXT 5%/0.9% NACL 1,000 ML IV SCH (17:07)
[2024-08-23] VITALS (7 sets, daily range): BP systolic 121–162; BP diastolic 64–91; PULSE 70–86; RESP 12–20; TEMP 36.6696–36.9474; O2SAT 97–100
[2024-08-23] MEDS: MORPHINE SULFATE 2 MG/ML INJ (NOT FOR IM USE) IV PRN (01:03)
[2024-08-23 07:21] LABS: POTASSIUM 4.2 mEq/L (3.5-5.1)
[2024-08-23 07:23] LABS: CALCIUM 9.1 mg/dL (8.7-10.4)
[2024-08-23 07:29] LABS: HEMATOCRIT 34.4 % (42.0-52.0); HEMOGLOBIN 11.2 g/dL (14.0-18.0); MEAN CORPUSCULAR HEMOGLOBIN 29.2 pg (28.0-32.0); MEAN CORPUSCULAR HGB CONC 32.4 g/dL (31.0-37.0); MEAN CORPUSCULAR VOLUME 90.1 fL (80.0-94.0); PLATELET 84 x1000/uL (130-400); RED BLOOD CELL COUNT 3.82 mill/uL (4.7-6.1); RED CELL DISTRIBUTION WIDTH 16.2 % (11.6-14.6); WHITE BLOOD COUNT 4.8 x1000/uL (4.5-11.0)
[2024-08-23 07:30] LABS: CREATININE 6.9 mg/dL (0.6-1.3)
[2024-08-23] MEDS: METOCLOPRAMIDE HCL 10MG/2ML VIAL IV SCH (23:44)
[2024-08-24] VITALS: BP 166/91; PULSE 76; RESP 16; TEMP 36.72516; O2SAT 99
[2024-08-24 04:00] VITALS: BP 170/87; PULSE 78; RESP 14; TEMP 36.83628; O2SAT 99
[2024-08-24 07:24] LABS: CHLORIDE 103 mEq/L (98-107); POTASSIUM 4.5 mEq/L (3.5-5.1); SODIUM 138 mEq/L (136-145)
[2024-08-24 07:25] LABS: CALCIUM 9.3 mg/dL (8.7-10.4); CARBON DIOXIDE 27 mEq/L (21-32)
[2024-08-24 07:30] LABS: GLUCOSE 54 mg/dL (70-105); UREA NITROGEN BLOOD 28 mg/dL (9-23)
[2024-08-24 07:31] LABS: ALANINE AMINOTRANSFERASE < 7 IU/L (10-49); ALBUMIN 3.8 g/dL (3.2-4.8); ASPARTATE AMINOTRANSFERASE 15 IU/L (<34)
[2024-08-24 07:32] LABS: BILIRUBIN DIRECT 0.1 mg/dL (<=3.0); PHOSPHORUS 4.7 mg/dL (2.5-4.9)
[2024-08-24 07:33] LABS: BILIRUBIN TOTAL 0.3 mg/dL (0.1-1.0); PROTEIN TOTAL 6.8 g/dL (6.0-8.3)
[2024-08-24 07:59] LABS: CREATININE 8.3 mg/dL (0.6-1.3)
[2024-08-24 08:00] VITALS: BP 164/85; PULSE 64; RESP 10; TEMP 36.83628; O2SAT 99
[2024-08-24 08:01] LABS: BASOPHILS % 0.2 % (0.0-2.0); EOSINOPHILS % 3.1 % (0.0-5.0); HEMATOCRIT 34.3 % (42.0-52.0); HEMATOCRIT. 34.3 % (42.0-52.0); HEMOGLOBIN 11.3 g/dL (14.0-18.0); HEMOGLOBIN. 11.3 g/dL (14.0-18.0); LYMPHOCYTES % 9.5 % (20.0-50.0); MEAN CORPUSCULAR HEMOGLOBIN 30.1 pg (28.0-32.0); MEAN CORPUSCULAR VOLUME 91.1 fL (80.0-94.0); MEAN PLATELET VOLUME 10.1 fl (7.4-10.4); MONOCYTES % 9.2 % (2.0-8.0); PLATELET 70 x1000/uL (130-400); RED BLOOD CELL COUNT 3.77 mill/uL (4.7-6.1); RED CELL DISTRIBUTION WIDTH 16.2 % (11.6-14.6)
[2024-08-24] MEDS: CLONIDINE 0.1MG TABLET PO PRN (08:18)
[2024-08-24] MEDS: BISACODYL 10MG SUPP PR NR (08:45)
[2024-08-24] MEDS: CIPROFLOXACIN 0.3% OPHTH SOLN 2.5ML BOTHEYE SCH (09:25)
[2024-08-24] MEDS ORDERED: HYDRALAZINE 20MG/ML VIAL IV PRN (09:30)
[2024-08-24 12:00] VITALS: BP 176/116; PULSE 69; RESP 13; TEMP 36.6696; O2SAT 98
[2024-08-24] MEDS: HYDRALAZINE 20MG/ML VIAL IV SCH (14:22)
[2024-08-24 16:00] VITALS: BP 170/110; PULSE 68; RESP 15; TEMP 36.6696; O2SAT 99
[2024-08-24 20:00] VITALS: BP 170/89; PULSE 84; RESP 16; TEMP 36.89184; O2SAT 97
[2024-08-25] VITALS (15 sets, daily range): BP systolic 88–186; BP diastolic 45–95; PULSE 64–96; RESP 14–20; TEMP 36.6696–36.89184; O2SAT 96–99
[2024-08-25 07:11] LABS: POTASSIUM 4.4 mEq/L (3.5-5.1)
[2024-08-25 07:12] LABS: CALCIUM 10.1 mg/dL (8.7-10.4)
[2024-08-25 07:19] LABS: PHOSPHORUS 5.2 mg/dL (2.5-4.9)
[2024-08-25 07:45] LABS: HEMATOCRIT 38.9 % (42.0-52.0); HEMOGLOBIN 12.4 g/dL (14.0-18.0); MEAN CORPUSCULAR HEMOGLOBIN 29.2 pg (28.0-32.0); MEAN CORPUSCULAR VOLUME 91.3 fL (80.0-94.0); PLATELET 84 x1000/uL (130-400); RED BLOOD CELL COUNT 4.26 mill/uL (4.7-6.1); RED CELL DISTRIBUTION WIDTH 16.1 % (11.6-14.6); WHITE BLOOD COUNT 4.2 x1000/uL (4.5-11.0)
[2024-08-25 08:06] LABS: CREATININE 9.6 mg/dL (0.6-1.3)
[2024-08-25] MEDS: DIATR MEGLU/DIATRIZOATE SOLN 120ML ONE (10:00)
[2024-08-25] MEDS: ISOSORBIDE MONONITRATE 30MG TABLET SR 24HR PO SCH (10:18)
[2024-08-25] MEDS: HYDRALAZINE 20MG/ML VIAL IV SCH (12:00)
[2024-08-26] VITALS: BP 118/67; PULSE 84; RESP 18; TEMP 36.78072; O2SAT 97
[2024-08-26 04:00] VITALS: BP 120/67; PULSE 63; RESP 18; TEMP 36.6696; O2SAT 97
[2024-08-26 08:00] VITALS: BP 125/70; PULSE 70; RESP 20; TEMP 36.6696; TEMP 36.66960; O2SAT 99
[2024-08-26 09:30] VITALS: BP 125/70; PULSE 70; TEMP 98; O2SAT 99
== END 2024-08-26 11:02 | disposition home health service (06) | DRG 192 ==
LOC: ER 00:44 → 5WST 03:55 → 3WST 08-19 01:26
PROVIDERS: ADMIT Internal Medicine; ATTEND Internal Medicine
PROC: 5A1D70Z Performance of Urinary Filtration, Intermittent, Less than 6 Hours Per Day (ICD-10-PCS; 2024-08-18)
PROC: 4A023N7 Measurement of Cardiac Sampling and Pressure, Left Heart, Percutaneous Approach (ICD-10-PCS; principal; 2024-08-19)
PROC: B211YZZ Fluoroscopy of Multiple Coronary Arteries using Other Contrast (ICD-10-PCS; 2024-08-19)
PROC: 5A1D70Z Performance of Urinary Filtration, Intermittent, Less than 6 Hours Per Day (ICD-10-PCS; 2024-08-20)
PROC: 5A1D70Z Performance of Urinary Filtration, Intermittent, Less than 6 Hours Per Day (ICD-10-PCS; 2024-08-20)
PROC: 0D9670Z Drainage of Stomach with Drainage Device, Via Natural or Artificial Opening (ICD-10-PCS; 2024-08-22)
PROC: 5A1D70Z Performance of Urinary Filtration, Intermittent, Less than 6 Hours Per Day (ICD-10-PCS; 2024-08-25)
DX: I13.2 Hypertensive heart and chronic kidney disease with heart failure and with stage 5 chronic kidney disease, or end stage renal disease (principal); D69.6 Thrombocytopenia, unspecified; I27.20 Pulmonary hypertension, unspecified; I42.8 Other cardiomyopathies; N18.6 End stage renal disease; E83.39 Other disorders of phosphorus metabolism; E87.1 Hypo-osmolality and hyponatremia; E11.22 Type 2 diabetes mellitus with diabetic chronic kidney disease; D64.9 Anemia, unspecified; I50.23 Acute on chronic systolic (congestive) heart failure; R94.31 Abnormal electrocardiogram [ECG] [EKG]; E11.51 Type 2 diabetes mellitus with diabetic peripheral angiopathy without gangrene; G89.29 Other chronic pain; E11.621 Type 2 diabetes mellitus with foot ulcer; K21.9 Gastro-esophageal reflux disease without esophagitis; E11.42 Type 2 diabetes mellitus with diabetic polyneuropathy; R26.9 Unspecified abnormalities of gait and mobility; E87.5 Hyperkalemia; I25.10 Atherosclerotic heart disease of native coronary artery without angina pectoris; M54.50 Low back pain, unspecified; E87.6 Hypokalemia; N28.1 Cyst of kidney, acquired; K40.90 Unilateral inguinal hernia, without obstruction or gangrene, not specified as recurrent; R07.9 Chest pain, unspecified; H54.62 Unqualified visual loss, left eye, normal vision right eye; Z20.822 Contact with and (suspected) exposure to COVID-19; K56.7 Ileus, unspecified; I16.1 Hypertensive emergency; L97.529 Non-pressure chronic ulcer of other part of left foot with unspecified severity; L97.519 Non-pressure chronic ulcer of other part of right foot with unspecified severity; H10.9 Unspecified conjunctivitis; S90.822A Blister (nonthermal), left foot, initial encounter; S90.821A Blister (nonthermal), right foot, initial encounter; X58.XXXA Exposure to other specified factors, initial encounter; Y93.89 Activity, other specified; Y92.89 Other specified places as the place of occurrence of the external cause; Y99.8 Other external cause status; Z87.891 Personal history of nicotine dependence; Z99.2 Dependence on renal dialysis; Z86.16 Personal history of COVID-19; Z79.899 Other long term (current) drug therapy; Z79.82 Long term (current) use of aspirin; Z91.158 Patient's noncompliance with renal dialysis for other reason
CPT/HCPCS: 36415; 70551; 71045; 74018; 74176; 74250; 80048; 80076; 80305; 83605; 83735; 83880; 84100; 84484; 85025; 85027; 86705; 86709; 87340; 87426; 90935; 93005; 93458; 93880; 97162; 97166; 99285; C1769; C1887; C1893; J0360; J1200; J1644; J2250; J2270; J2310; J2405; J2543; J2765; J3010; J3370; J3490; J7042; Q9963; Q9967